=== PATIENT | male | born 1965 | race African-American/Black ===

== ENCOUNTER 2017-07-07 10:24 | Emergency (ER) | payer MEDICAID ==
[2010-04-05 12:49] VITALS: BMI 26.3
== END 2017-07-07 12:15 | disposition home or self-care (01) ==
LOC: D.ER 10:24
DX: M54.5 Low back pain (principal)

== ENCOUNTER 2018-02-23 09:44 | Emergency (ER) | payer SELFPAY ==
[~2018-02-23] VITALS: Ht 172.7 cm; Wt 83.2 kg
[2018-02-23 09:58] VITALS: Ht 172.7 cm; Wt 83.2 kg
[2018-02-23] MEDS ORDERED: TORADOL10 MG PO (14:21)
[2018-02-23 15:14] VITALS: BP 137/87
== END 2018-02-23 15:04 | disposition home or self-care (01) ==
LOC: D.ER 09:44
DX: M54.5 Low back pain (principal); I10 Essential (primary) hypertension